=== PATIENT | female | born 1965 | race Caucasian/White ===

== ENCOUNTER 2018-09-20 20:15 | Emergency (ER) | payer MEDICAID, OTHER ==
[~2018-09-20] VITALS: Ht 165.1 cm; Wt 77.1 kg
[2018-09-20] MEDS ORDERED: HYDROcodone/APAP 5 MG/325 MG (LORTAB) TAB PO ONE (21:45)
--- NOTE | 2018-09-20 22:12 | ED General ---
General Chief Complaint: Trauma-Non Activation Stated Complaint: FALL Nursing Triage Note: Fall with head injury Nursing Sepsis Screen: No Definite Risk History of Present Illness Date Seen by Provider: Sep 20, 2018 Time Seen by Provider: 23:49 Initial Comments Patient presents to emergency department for evaluation of head injury sustained when she was outside and fell and tripped forward striking her head against her [place]. She does not think that she lost consciousness but she has pain in her face as well as a headache. She has multiple abrasions to her face and forehead. She says that her tetanus is up-to-date. She denies any neck chest abdomen back or other extremity pain and she is able to ambulate with a steady gait. She is in no obvious distress with normal vital signs. Location Injury Occurred: Home Allergies and Home Medications Allergies Coded Allergies: No Known Drug Allergies (Unverified , 09/20/18) Patient Home Medication List Home Medication List Reviewed: Yes Review of Systems Review of Systems Constitutional: No fever EENTM: No vision loss Respiratory: No short of breath Cardiovascular: No chest pain Gastrointestinal: No abdominal pain Psychiatric/Neurological: Headache Past Qsirzan-Fxwuvo-Nqcohw Hx Patient Social History Recent Foreign Travel: No Contact w/Someone Who Travel: No Recent Infectious Disease Expo: No Physical Abuse: No Sexual Abuse: No Mistreated: No Fear: No Past Medical History : No Physical Exam Vital Signs Vital Signs - First Documented 09/20/18 09/20/18 21:05 23:26 Temp 96.0 Pulse 114 Resp 16 B/P (MAP) 141/91 (108) Pulse Ox 96 Capillary Refill : Less Than 3 Seconds Height, Weight, BMI Height: 5'5.00" Weight: 170lbs. oz. 77.882011vz; BMI Method:Stated General Appearance: No Apparent Distress, WD/WN Eyes: Bilateral Eye Normal Inspection HEENT: PERRL/EOMI Neck: Full Range of Motion, Normal Inspection, Non Tender Respiratory: Chest Non Tender, Lungs Clear, Normal Breath Sounds Cardiovascular: Regular Rate, Rhythm Back: Normal Inspection, No Vertebral Tenderness Extremity: Normal Capillary Refill Neurologic/Psychiatric: Alert, Oriented x3 Skin: Other (surface abrasions to bridge of nose and forehead that do not extend into subcutaneous tissues) Progress/Results/Core Measures Suspected Sepsis Recent Fever Within 48 Hours: No Infection Criteria Present: None New/Unexplained Altered Menta: No Sepsis Screen: No Definite Risk SIRS Temperature:96.0 Pulse: 114 Respiratory Rate: Blood Pressure 141 /91 Mean: 108 Results/Orders My Orders Orders - PARTH BENEDICT DO Ct Head/Maxillofacial Wo (09/20/18 21:41) Hydrocodone/Apap 5/325 Tablet (Lortab 5 (09/20/18 21:45) Vital Signs/I&O 09/20/18 09/20/18 21:05 23:26 Temp 96.0 97.0 Pulse 114 110 Resp 16 B/P (MAP) 141/91 (108) 138/86 (103) Pulse Ox 96 Capillary Refill : Less Than 3 Seconds Blood Pressure Mean: 108 Progress Note : Progress Note Patient's CT negative for acute process and she had repeat normal neurologic exam she can safely be discharged to condition with supportive treatment. She was told to follow up with primary care provider later this week and come back to the ED sooner with worsening pain neurologic changes or general concerns. Departure Impression Primary Impression: CHI (closed head injury) Additional Impression: Facial abrasion Disposition: 01 HOME, SELF-CARE Condition: Stable Departure-Patient Inst. Decision time for Depature: 22:46 PARTH BENEDICT DO Sep 20, 2018 22:12
[2018-09-20 23:26] VITALS: BP 138/86
--- NOTE | 2018-09-21 06:12 | Diagnostic Imaging Report ---
PROCEDURE: CT head and maxillofacial without contrast. TECHNIQUE: Multiple contiguous axial images were obtained through the head and facial bones without the use of intravenous contrast. INDICATION: Head and face trauma. FINDINGS: There is prominence of the ventricles and sulci. There is some chronic microvascular ischemic disease. There is no hydrocephalus. There is no midline shift. There is no intracranial mass, hemorrhage or extra-axial fluid collection. There is a fluid level in the left maxillary sinus with some hyperdense components. There is also mucosal thickening. Nasal bones are intact. The zygomatic arches are intact. The pterygoid plates are intact. Mandible is intact. Condyles are well aligned. The orbital floors and lamina papyracea are intact. There is mucosal thickening in the right maxillary sinus. IMPRESSION: Atrophy and some chronic microvascular ischemic disease, however, no acute intracranial abnormality. No displaced facial fractures. Hyperdense fluid in the left maxillary sinus. Recommend correlation for sinusitis. Possibility of blood products in the setting of occult fracture cannot be entirely excluded given the degree of osteopenia. Recommend clinical correlation. Dictated by: Dictated on workstation # [id number]
== END 2018-09-20 23:26 | disposition home or self-care (01) ==
LOC: ER FS 20:19
DX: S09.90XA Unspecified injury of head, initial encounter (principal); S00.81XA Abrasion of other part of head, initial encounter; W01.198A Fall on same level from slipping, tripping and stumbling with subsequent striking against other object, initial encounter; Y92.009 Unspecified place in unspecified non-institutional (private) residence as the place of occurrence of the external cause
CPT/HCPCS: 70450; 70486

== ENCOUNTER 2019-02-13 07:07 | Emergency (ER) | payer MEDICARE, MEDICAID ==
[~2019-02-13] VITALS: Ht 165.1 cm; Wt 86.2 kg
--- OUTSIDE RECORDS SUMMARY | 2019-02-13 07:12 | XMS REPORT ---
Author Author TOREY PLEITEZ [facility] Address [address] [place] [address] Care Team Providers Care Butadiene Convertor Operator Name Role Phone TOREY PLEITEZ Unavailable PROBLEMS Unknown Problems ALLERGIES No Information ENCOUNTERS Encounter Location Date Diagnosis [facility] [address] [place] [address] Jun, [facility] [address] [address] Jan, [facility] [address] [address] Aug, [facility] [address], [place] [address] May, [facility] [address], [place] [address] November, [facility] [address] [address] Aug, [facility] [id number] [address] Apr, [facility] [address], [place] [address] Jan, [facility] [address], [place] [address] Jul, [facility] [address], [place] [address] Jan, [facility] [id number], [place] [address] Jan, [facility] [id number] [address] Jan, IMMUNIZATIONS No Known Immunizations SOCIAL HISTORY Never Assessed REASON FOR VISIT PLAN OF CARE VITAL SIGNS MEDICATIONS Unknown Medications RESULTS No Results PROCEDURES No Known procedures INSTRUCTIONS MEDICATIONS ADMINISTERED No Known Medications
--- OUTSIDE RECORDS SUMMARY | 2019-02-13 07:12 | XMS REPORT ---
Author Author TOREY PLEITEZ [facility] Address [address] [place] [address] Care Team Providers Care Portfolio Specialist Name Role Phone TOREY PLEITEZ Unavailable PROBLEMS Unknown Problems ALLERGIES No Information ENCOUNTERS Encounter Location Date Diagnosis [facility] [address], [place] [address] Jun, [facility] [id number] [address] Jan, [facility] [id number] [address] Aug, [facility] [address] [place] [address] May, [facility] [address] [place] [address] November, [facility] [id number] [address] Aug, [facility] [id number] [address] Apr, [facility] [address], [place] [address] Jan, [facility] [address], [place] [address] Jul, [facility] [address], [place] [address] Jan, [facility] [id number], [place] [address] Jan, [facility] [id number] [address] Jan, IMMUNIZATIONS No Known Immunizations SOCIAL HISTORY Never Assessed REASON FOR VISIT PLAN OF CARE VITAL SIGNS MEDICATIONS Unknown Medications RESULTS No Results PROCEDURES No Known procedures INSTRUCTIONS MEDICATIONS ADMINISTERED No Known Medications
--- OUTSIDE RECORDS SUMMARY | 2019-02-13 07:12 | XMS REPORT ---
Author Author TOREY PELITEZ [facility] Address [address] [place] [address] Care Team Providers Care Cooking Appliance Repair Technician Name Role Phone TOREY PLEITEZ Unavailable PROBLEMS Unknown Problems ALLERGIES No Information ENCOUNTERS Encounter Location Date Diagnosis [facility] [address], [place] [address] Jun, [facility] [id number] [address] Jan, [facility] [id number] [address] Aug, [facility] [address], [place] [address] May, [facility] [address], [place] [address] November, [facility] [id number] [address] Aug, [facility] [id number], [place] [address] Apr, [facility] [address], [place] [address] Jan, [facility] [address], [place] [address] Jul, [facility] [address], [place] [address] Jan, [facility] [id number], [place] [address] Jan, [facility] [id number] [address] Jan, IMMUNIZATIONS No Known Immunizations SOCIAL HISTORY Never Assessed REASON FOR VISIT PLAN OF CARE VITAL SIGNS MEDICATIONS Unknown Medications RESULTS No Results PROCEDURES No Known procedures INSTRUCTIONS MEDICATIONS ADMINISTERED No Known Medications
--- OUTSIDE RECORDS SUMMARY | 2019-02-13 07:12 | XMS REPORT ---
Author Ninfa Sutherland Organization [employer] Address Unknown Phone Unavailable Care Team Providers Care Coconut Jelly Roller Name Role Phone Ninfa Moore CP Unavailable Allergies, Adverse Reactions, Alerts Substance Reaction Event Type N.K.D.A. 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 Problem Chronic depression F32.9 Active Medications Medication Code System Code Instructions Start Date End Date Status Dosage Aleve [facility] [address]-08 220 MG Orally every 12 hrs 1 tablet as needed Citalopram Hydrobromide [facility] [address]-20 20 MG Oral daily Jul 19, 2013 3 tabs Genvoya [facility] [address]-67 150 mg/150 mg/200/mg/10 mg Oral Once a day Aug 12, 2015 1 tablet Alprazolam [facility] [address]-49 2 MG Oral 1 prn Jul 19, 2013 not defined Procedures Procedure Coding System Code Date Office Visit, Est Pt., Level 3 CPT-4 82783 May 04, 2016 Billed by outside source CPT-4 NOBLL May 04, 2016 Vital Signs Date/Time: May 04, 2016 Temperature 97.7 F Weight 167.8 lbs Height 65 in Respiratory Rate 64 /min Cardiac Monitoring Heart Rate 64 /min Blood Pressure Diastolic 70 mm Hg Blood Pressure Systolic 126 mm Hg BMI 27.92 Index Results No Known Results Summary Purpose [employer] Submission
--- OUTSIDE RECORDS SUMMARY | 2019-02-13 07:12 | XMS REPORT ---
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 430677384 Problem Former smoker Z87.891 Active 3519898 Problem Smoker F17.200 Resolved 85034335 Problem Asymptomatic human immunodeficiency virus [HIV] infection status Z21 Active 13571813 ALLERGIES No Known Allergies ENCOUNTERS Encounter Location Date Diagnosis [address] [id number] Jun, Asymptomatic human immunodeficiency virus [HIV] infection status Z21 and B12 deficiency E53.[address] [id number] Jan, Asymptomatic human immunodeficiency virus [HIV] infection status Z21 and Low vitamin D level R79.[address] [id number] Aug, Acute human immunodeficiency virus (HIV) infection Z21 [address] [address] Jul, [address] [address] Jul, [facility] [address] [place] [id number] May, Asymptomatic human immunodeficiency virus (HIV) infection status Z21 ; Influenza vaccine needed Z23 ; Moderate episode of recurrent major depressive disorder F33.1 and Cheilitis K13.[address] [id number] November, Asymptomatic human immunodeficiency virus [HIV] infection status Z21 [facility] [address] [place] [address] Aug, Screening for breast cancer Z12.[address] [id number] Aug, Asymptomatic human immunodeficiency virus [HIV] infection status Z21 [facility] [address] [place] [address] Apr, [address] [id number] Apr, Asymptomatic human immunodeficiency virus [HIV] infection status Z21 ; Chronic depression F32.9 and Need for pneumococcal vaccination Z23 [address] [id number] Jan, Asymptomatic human immunodeficiency virus [HIV] infection status Z21 and Former smoker Z87.[address] [id number] Jul, Asymptomatic human immunodeficiency virus (HIV) infection status Z21 ; 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 and Smoker F17.[address] [id number] Jan, Asymptomatic human immunodeficiency virus (HIV) infection status V08 [facility] [address] [place] [id number] Jul, Asymptomatic human immunodeficiency virus (HIV) infection status V08 [address] [id number] Mar, Asymptomatic human immunodeficiency virus (HIV) infection status V08 ; Tobacco use disorder 305.1 and Needs flu shot V04.81 [facility] [address] [facility] [address] [place] [id number] Feb, [facility] [address] [facility] [address] [place] [id number] Feb, [facility] [address] [facility] [address] [place] [id number] November, [facility] [address] [place] [address] Jul, [facility] [address] [place] [facility] [place] [address] Apr, [facility] [address] [place] [facility] [place] [address] Feb, [facility] [address] [place] [facility] [place] [address] Jan, IMMUNIZATIONS Vaccine Route Administration Date Status VITAMIN B-12 IM Intramuscular Jun 20, 2018 Administered SOCIAL HISTORY Never Assessed REASON FOR VISIT HIV followup PLAN OF CARE Activity Details Follow Up 4 Months Reason: Pending Test Human Immunodeficiency Virus (HIV-1), Quantitative, Real-time PCR (graph) 69858 Pending Test Rapid Plasma Reagin (RPR), Test w/ Reflex to Quant RPR/Confirm Treponema pallidum Antibodies 72615 Pending Test Metabolic Panel (14), Comprehensive (CMP) 73829 Pending Test CD4/CD8 Ratio Profile 24116 VITAL SIGNS Height 65 in 2018-06-20 Weight 183 lbs 2018-06-20 Temperature 97.5 degrees Fahrenheit 2018-06-20 Heart Rate 62 /min 2018-06-20 Respiratory Rate 16 /min 2018-06-20 Oximetry 98 % 2018-06-20 BMI 30.45 kg/m2 2018-06-20 Blood pressure systolic 108 mm Hg 2018-06-20 Blood pressure diastolic 82 mm Hg 2018-06-20 MEDICATIONS Medication Instructions Dosage Frequency Start Date End Date Duration Status Genvoya [id number] MG TAKE 1 TABLET BY MOUTH DAILY 30 Active Aleve 220 MG Orally every 12 hrs 1 tablet as needed 12h Active Lisinopril 2.5 MG Active Alprazolam 2 MG Oral 1 prn Jul, 0 Active Citalopram Hydrobromide 20 MG Oral daily 3 tabs 24h Jul, Active RESULTS No Results PROCEDURES Procedure Date Ordered Result Body Site Billed by outside source Jun 20, 2018 THER/PROPH/DIAG INJ, SC/IM Jun 20, 2018 VITAMIN B-12 Jun 20, 2018 INSTRUCTIONS MEDICATIONS ADMINISTERED No Known Medications MEDICAL (GENERAL) HISTORY Type Description Date Medical History HIV Medical History Pneumonia, organism unspecified Medical History Smoker (resolved 02/07/2016) Surgical History Heart Cath 08/22/16
--- OUTSIDE RECORDS SUMMARY | 2019-02-13 07:12 | XMS REPORT ---
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 539847983 Problem Asymptomatic human immunodeficiency virus [HIV] infection status Z21 Active 55672578 Problem Smoker F17.200 Resolved 17596471 ALLERGIES No Information ENCOUNTERS Encounter Location Date Diagnosis [facility] [address] [place] [id number] Jan, [facility] [address] [place] [id number] Jul, Asymptomatic human immunodeficiency virus [HIV] infection status Z21 [facility] [address] [id number] Jun, Asymptomatic human immunodeficiency virus [HIV] infection status Z21 and B12 deficiency E53.[address] [facility] [address] [id number] Jan, Asymptomatic human immunodeficiency virus [HIV] infection status Z21 and Low vitamin D level R79.[address] [id number] Aug, Acute human immunodeficiency virus (HIV) infection Z21 [address] [address] Jul, [address] [address] Jul, [facility] [address] [place] [id number] May, Asymptomatic human immunodeficiency virus (HIV) infection status Z21 ; Influenza vaccine needed Z23 ; Moderate episode of recurrent major depressive disorder F33.1 and Cheilitis K13.[address] [id number] November, Asymptomatic human immunodeficiency virus [HIV] infection status Z21 [facility] [address] [place] [address] Aug, Screening for breast cancer Z12.[address] [id number] Aug, Asymptomatic human immunodeficiency virus [HIV] infection status Z21 [facility] [address] [place] [address] Apr, [address] [id number] Apr, Asymptomatic human immunodeficiency virus [HIV] infection status Z21 ; Chronic depression F32.9 and Need for pneumococcal vaccination Z23 [address] [id number] Jan, Asymptomatic human immunodeficiency virus [HIV] infection status Z21 and Former smoker Z87.[address] [id number] Jul, Asymptomatic human immunodeficiency virus (HIV) infection status Z21 ; 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 and Smoker F17.[address] [id number] Jan, Asymptomatic human immunodeficiency virus (HIV) infection status V08 [facility] [address] [place] [id number] Jul, Asymptomatic human immunodeficiency virus (HIV) infection status V08 [address] [id number] Mar, Asymptomatic human immunodeficiency virus (HIV) infection status V08 ; Tobacco use disorder 305.1 and Needs flu shot V04.81 [facility] [address] [facility] [address] [place] [id number] Feb, [facility] [address] [facility] [address] [place] [id number] Feb, [facility] [address] [facility] [address] [place] [id number] November, [facility] [address] [place] [address] Jul, [facility] [address] [place] [address] Apr, [facility] [address] [place] [address] Feb, [facility] [address] [place] [address] Jan, IMMUNIZATIONS No Known Immunizations SOCIAL HISTORY Never Assessed REASON FOR VISIT lab orders for PLAN OF CARE VITAL SIGNS MEDICATIONS Unknown Medications RESULTS No Results PROCEDURES No Known procedures INSTRUCTIONS MEDICATIONS ADMINISTERED No Known Medications MEDICAL (GENERAL) HISTORY Type Description Date Medical History HIV Medical History Pneumonia, organism unspecified Medical History Smoker (resolved 02/07/2016) Surgical History Heart Cath 08/22/16
--- OUTSIDE RECORDS SUMMARY | 2019-02-13 07:12 | XMS REPORT ---
Author Author TOREY PLEITEZ [facility] Address [address] [place] [address] Care Team Providers Care Design Drafter Chief Name Role Phone TOREY PLEITEZ Unavailable PROBLEMS Unknown Problems ALLERGIES No Information ENCOUNTERS Encounter Location Date Diagnosis [facility] [address], [place] [address] Jun, [facility] [id number], [place] [address] Jan, [facility] [id number], [place] [address] Aug, [facility] [address], [place] [address] May, [facility] [address], [place] [address] November, [facility] [id number], [place] [address] Aug, [facility] [id number], [place] [address] Apr, [facility] [address], [place] [address] Jan, [facility] [address], [place] [address] Jul, [facility] [address], [place] [address] Jan, [facility] [id number], [place] [address] Jan, [facility] [id number] [address] Jan, IMMUNIZATIONS No Known Immunizations SOCIAL HISTORY Never Assessed REASON FOR VISIT PLAN OF CARE VITAL SIGNS MEDICATIONS Unknown Medications RESULTS No Results PROCEDURES No Known procedures INSTRUCTIONS MEDICATIONS ADMINISTERED No Known Medications
--- OUTSIDE RECORDS SUMMARY | 2019-02-13 07:12 | XMS REPORT ---
Author TOREY Oseguera [facility] e[employer] Address Unknown Phone Unavailable Care Team Providers Care Senior Associate Name Role Phone TOREY PLEITEZ CP Unavailable Allergies No Known Allergies Problems No Known Problems Medications No Known Medications Results No Known Results Summary Purpose [employer] Submission
--- OUTSIDE RECORDS SUMMARY | 2019-02-13 07:12 | XMS REPORT ---
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
--- OUTSIDE RECORDS SUMMARY | 2019-02-13 07:12 | XMS REPORT ---
Author Author TOREY PLEITEZ [facility] Address [address] [place] [address] Care Team Providers Care Gas Meter Mechanic Name Role Phone TOREY PLEITEZ Unavailable PROBLEMS Unknown Problems ALLERGIES No Information ENCOUNTERS Encounter Location Date Diagnosis [facility] [id number] [address] Jun, [facility] [id number] [address] Jan, [facility] [id number] [address] Aug, [facility] [id number] [address] May, [facility] [id number] [address] November, [facility] [id number] [address] Aug, [facility] [id number] [address] Apr, [facility] [id number] [address] Jan, [facility] [id number] [address] Jul, [facility] [id number] [address] Jan, [facility] [id number] [address] Jan, [facility] [id number] [address] Jan, IMMUNIZATIONS No Known Immunizations SOCIAL HISTORY Never Assessed REASON FOR VISIT [facility] PLAN OF CARE VITAL SIGNS MEDICATIONS Unknown Medications RESULTS No Results PROCEDURES No Known procedures INSTRUCTIONS MEDICATIONS ADMINISTERED No Known Medications
--- OUTSIDE RECORDS SUMMARY | 2019-02-13 07:12 | XMS REPORT ---
Author Sandrita Calderón [facility] eClinicalWorks Address Unknown Phone Unavailable Care Team Providers Care Adon Name Role Phone Sandrita Contreras CP Unavailable Allergies, Adverse Reactions, Alerts Substance Reaction Event Type N.K.D.A. Info Not Available Non Drug Allergy Problems Problem Type Condition ICD-9 Code Onset Dates Condition Status Problem Biarmwwdqk-moopekc-vhkvotnza, combined [DTP] [DtaP] V06.1 Inactive Problem Other screening mammogram V76.12 Active Problem Need for prophylactic vaccination and inoculation, Influenza V04.81 Inactive Problem Special screening examination for unspecified viral disease V73.99 Inactive Problem Screening examination for venereal disease V74.5 Inactive Problem Tobacco use disorder 305.1 Active Problem Nondependent tobacco use disorder 305.1 Active Problem Asymptomatic human immunodeficiency virus (HIV) infection status V08 Active Problem Nonspecific serologic evidence of human immunodeficiency virus (HIV) 795.71 Inactive Problem Pneumonia, organism unspecified 486 Inactive Assessment Asymptomatic human immunodeficiency virus (HIV) infection status V08 Active Problem Depressive disorder, not elsewhere classified 311 Inactive Problem Condyloma acuminatum 078.11 Active Problem Need for prophylactic vaccination against streptococcus pneumoniae (pneumococcus) V03.82 Inactive Medications Medication Code System Code Instructions Start Date End Date Status Dosage Atripla [facility] [address]-26 600-200-300 MG Oral 1 (one) QHS January 04, 2014 not defined Citalopram Hydrobromide [facility] [address]-04 20 MG Oral 1 daily Jul 19, 2013 not defined Diphenoxylate-Atropine [facility] [address]-39 2.5-0.025 MG Oral 1/2 prn after loose stool not defined Alprazolam [facility] [address]-63 2 MG Oral 1 prn Jul 19, 2013 not defined Procedures Procedure Coding System Code Date Office Visit, Est Pt., Level 3 CPT-4 60363 Jul 23, 2014 Vital Signs Date/Time: Jul 23, 2014 Temperature 98.0 F Weight 132 lbs Height 65 in Respiratory Rate 28 /min Cardiac Monitoring Heart Rate 80 /min Blood Pressure Diastolic 82 mm Hg Blood Pressure Systolic 118 mm Hg BMI 21.96 Index Results No Known Results Summary Purpose eClinicalWorks Submission
--- OUTSIDE RECORDS SUMMARY | 2019-02-13 07:12 | XMS REPORT ---
Author TOREY Oseguera [facility] eClinicalWorks Address Unknown Phone Unavailable Care Team Providers Care Mobile Development Manager Name Role Phone TOREY PLEITEZ CP Unavailable Allergies No Known Allergies Problems No Known Problems Medications No Known Medications Results No Known Results Summary Purpose eClinicalWorks Submission
--- OUTSIDE RECORDS SUMMARY | 2019-02-13 07:12 | XMS REPORT ---
Author Author TOREY PLEITEZ [facility] Address [address] [place] [address] Care Team Providers Care Despatch Clerk Name Role Phone TOREY PLEITEZ Unavailable PROBLEMS Unknown Problems ALLERGIES No Information ENCOUNTERS Encounter Location Date Diagnosis [facility] [id number] [address] Jun, [facility] [id number] [address] Jan, [facility] [id number] [address] Aug, [facility] [id number] [address] May, [facility] [id number] [address] November, [facility] [id number] [address] Aug, [facility] [id number] [address] Apr, [facility] [address] [address] Jan, [facility] [address] [address] Jul, [facility] [id number] [address] Jan, [facility] [id number] [address] Jan, [facility] [id number] [address] Jan, IMMUNIZATIONS No Known Immunizations SOCIAL HISTORY Never Assessed REASON FOR VISIT PLAN OF CARE VITAL SIGNS MEDICATIONS Unknown Medications RESULTS No Results PROCEDURES No Known procedures INSTRUCTIONS MEDICATIONS ADMINISTERED No Known Medications
--- OUTSIDE RECORDS SUMMARY | 2019-02-13 07:13 | XMS REPORT ---
Author Erlinda Jauregui [facility] eClinicalWorks Address Unknown Phone Unavailable Care Team Providers Care Dictaphone Mechanic Name Role Phone Erlinda Martinez CP Unavailable Allergies No Known Allergies Problems Problem Type Condition Code Onset Dates Condition Status Assessment Former smoker Z87.891 Active Problem Smoker F17.200 Active Problem Asymptomatic human immunodeficiency virus [HIV] infection status Z21 Active Problem meterman prescription opiate use Z79.899 Active Problem Former smoker Z87.891 Active Assessment Asymptomatic human immunodeficiency virus [HIV] infection status Z21 Active Problem 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 Problem Chronic depression F32.9 Active Medications Medication Code System Code Instructions Start Date End Date Status Dosage Diphenoxylate-Atropine [facility] [address]-36 2.5-0.025 MG Oral 1/2 prn after loose stool not defined Alprazolam [facility] [address]-61 2 MG Oral 1 prn Jul 19, 2013 not defined Atripla [facility] 40846736193 600-200-300 MG 1 (one) Tablet, Oral, QHS Genvoya [facility] [address]-02 150 mg/150 mg/200/mg/10 mg Oral Once a day Aug 12, 2015 1 tablet Citalopram Hydrobromide [facility] [address]-73 20 MG Oral 1 daily Jul 19, 2013 not defined Procedures Procedure Coding System Code Date Office Visit, Est Pt., Level 3 CPT-4 03604 January 20, 2016 Billed by outside source CPT-4 NOBLL January 20, 2016 Vital Signs Date/Time: January 20, 2016 Temperature 98.4 F Weight 160.2 lbs Height 65 in Respiratory Rate 20 /min Cardiac Monitoring Heart Rate 92 /min Blood Pressure Diastolic 102 mm Hg Blood Pressure Systolic 168 mm Hg BMI 26.66 Index Results Name Result Date Reference Range Unit Abnormality Flag Lipid Panel 55357 ----HDL Cholesterol 67 25088399 >39 mg/dL ----VLDL Cholesterol [place] 38 05376265 5-40 mg/dL ----LDL Cholesterol Calc 136 65145916 0-99 mg/dL H ----Comment: CLIENT RELATIONS REPRESENTATIVE 20160120 ----Cholesterol, Total 241 57907361 100-199 mg/dL H ----Triglycerides 190 73239096 0-149 mg/dL H Metabolic Panel (14), Comprehensive (CMP) 51244 ----Globulin, Total 2.1 83739743 1.5-4.5 g/dL ----eGFR If Africn Am 83 39624910 >59 mL/min/1.73 ----eGFR If NonAfricn Am 72 03275094 >59 mL/min/1.73 ----Albumin, Serum 4.4 85355218 3.6-4.8 g/dL ----Sodium, Serum 141 37020844 134-144 mmol/L ----Protein, Total, Serum 6.5 25240536 6.0-8.5 g/dL ----BUN/Creatinine Ratio 22 56327756 11-26 ----Calcium, Serum 9.5 27671637 8.7-10.3 mg/dL ----AST (SGOT) 22 20160120 0-40 IU/L ----Glucose, Serum 94 94660998 65-99 mg/dL ----Alkaline Phosphatase, S 95 90458708 39-117 IU/L ----Bilirubin, Total 0.3 63720660 0.0-1.2 mg/dL ----Creatinine, Serum 0.88 58705266 0.57-1.00 mg/dL ----A/G Ratio 2.1 41742390 1.1-2.5 ----BUN 19 20160120 8-27 mg/dL ----Carbon Dioxide, Total 25 70966296 18-29 mmol/L ----ALT (SGPT) 19 20160120 0-32 IU/L ----Potassium, Serum 4.5 82466219 3.5-5.2 mmol/L ----Chloride, Serum 101 36150366 97-108 mmol/L Human Immunodeficiency Virus (HIV-1), Quantitative, Real-time PCR (graph) 81001 ----HIV-1 RNA by PCR 20 [id number] copies/mL ----log10 HIV-1 RNA 1.301 95391114 bes67duec/mL Rapid Plasma Reagin (RPR), Qualitative Test 18315 ----RPR Non Reactive 20160120 Non Reactive CD4/CD8 Ratio Profile 66156 ----Hemoglobin 13.1 19907588 11.1-15.9 g/dL ----RBC 4.37 36084995 3.77-5.28 x10E6/uL ----WBC 5.8 21124535 3.4-10.8 x10E3/uL ----CD4/CD8 Ratio 0.72 39571547 0.92-3.72 L ----% CD 8 Pos. Lymph. 44.4 82813631 12.0-35.5 % H ----Abs. CD 8 Suppressor 533 16979628 109-897 /uL ----% CD 4 Pos. Lymph. 31.8 90261205 30.8-58.5 % ----Immature Cells CLIENT RELATIONS REPRESENTATIVE 20160120 ----Absolute CD 4 [place] 382 26865143 359-1519 /uL ----Lymphs (Absolute) 1.2 23705502 0.7-3.1 x10E3/uL ----Neutrophils (Absolute) 3.8 35686466 1.4-7.0 x10E3/uL ----Eos (Absolute) 0.2 08963462 0.0-0.4 x10E3/uL ----Monocytes(Absolute) 0.5 79166426 0.1-0.9 x10E3/uL ----Immature Granulocytes 0 55148113 % ----Baso (Absolute) 0.0 34313819 0.0-0.2 x10E3/uL ----NRBC CLIENT RELATIONS REPRESENTATIVE 20160120 ----Immature Grans (Abs) 0.0 23515392 0.0-0.1 x10E3/uL ----Eos 4 37845266 % ----Basos 1 27198021 % ----Platelets 250 90967305 150-379 x10E3/uL ----Neutrophils 65 28298917 % ----Hematology Comments: CLIENT RELATIONS REPRESENTATIVE 20160120 ----Lymphs 21 95267191 % ----Monocytes 9 23497512 % ----MCV 90 89072906 79-97 fL ----MCH 30.0 57352028 26.6-33.0 pg ----MCHC 33.2 20160120 31.5-35.7 g/dL ----RDW 14.8 35644141 12.3-15.4 % ----Hematocrit 39.4 71469715 34.0-46.6 % Summary Purpose eClinicalWorks Submission
--- OUTSIDE RECORDS SUMMARY | 2019-02-13 07:13 | XMS REPORT ---
Author Author uRt Winter [facility] Address [address] [place], [place] [address] Care Team Providers Care Destaticizer Feeder Name Role Phone Rut Winter Unavailable PROBLEMS Type Condition ICD9-CM Code LZJ17-KW Code Onset Dates Condition Status SNOMED Code Assessment Screening for breast cancer Z12.39 22 Aug, 2016 Active 993418011 Problem nursing home prescription opiate use Z79.899 Active 984548483 Problem Smoker F17.200 Resolved 74886673 Problem Chronic depression F32.9 Active 480036554 Problem Former smoker Z87.891 Active 2624387 Problem Asymptomatic human immunodeficiency virus [HIV] infection status Z21 Active 85313475 Problem 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
--- OUTSIDE RECORDS SUMMARY | 2019-02-13 07:13 | XMS REPORT ---
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 260526318 Problem Former smoker Z87.891 Active 4468043 Problem Smoker F17.200 Resolved 38298559 Problem Asymptomatic human immunodeficiency virus [HIV] infection status Z21 Active 61681804 ALLERGIES No Known Allergies SOCIAL HISTORY Never Assessed PLAN OF CARE Activity Details Follow Up 01/31/18, prn Reason: Pending Test Human Immunodeficiency Virus (HIV-1), Quantitative, Real-time PCR (graph) 37147 Pending Test Rapid Plasma Reagin (RPR), Test w/ Reflex to Quant RPR/Confirm Treponema pallidum Antibodies 76826 Pending Test Thyroid-Stimulating Hormone (TSH) and Free T4 60932/86387 Pending Test Lipid Panel 57954 Pending Test Metabolic Panel (14), Comprehensive (CMP) 47671 Pending Test CD4/CD8 Ratio Profile 84820 VITAL SIGNS Height 65 in 2017-08-16 Weight 175 lbs 2017-08-16 Temperature 97.6 degrees Fahrenheit 2017-08-16 Heart Rate 64 /min 2017-08-16 Respiratory Rate 16 /min 2017-08-16 Oximetry 99 % 2017-08-16 BMI 29.12 kg/m2 2017-08-16 Blood pressure systolic 102 mm Hg 2017-08-16 Blood pressure diastolic 68 mm Hg 2017-08-16 MEDICATIONS Medication Instructions Dosage Frequency Start Date End Date Duration Status Lisinopril 2.5 MG Active Genvoya 500-113-674-10 MG TAKE 1 TABLET BY MOUTH DAILY 30 Active Citalopram Hydrobromide 20 MG Oral daily 3 tabs 24h Jul, Active Nystatin 755083 UNIT/ML Mouth/Throat Four times a day 4 ml 6h May, 10 days Active Genvoya 150 mg/150 mg/200/mg/10 mg Oral Once a day 1 tablet 24h Jul, 30 days Active Abilify 5 MG Orally Once a day 1 tablet 24h May, 30 day(s) Active Alprazolam 2 MG Oral 1 prn Jul, 0 Active Aleve 220 MG Orally every 12 hrs 1 tablet as needed 12h Active RESULTS No Results PROCEDURES Procedure Date Ordered Result Body Site Billed by outside source Aug 16, 2017 IMMUNIZATIONS No Known Immunizations MEDICAL (GENERAL) HISTORY Type Description Date Medical History HIV Medical History Pneumonia, organism unspecified Medical History Smoker (resolved 02/07/2016) Surgical History Heart Cath 08/22/16
--- OUTSIDE RECORDS SUMMARY | 2019-02-13 07:13 | XMS REPORT ---
Author Rut Martinez [facility] eClinicalWorks Address Unknown Phone Unavailable Care Team Providers Care Founder Chairman And Chief Creative Officer Name Role Phone Rut Winter CP Unavailable Allergies No Known Allergies Problems Problem Type Condition Code Onset Dates Condition Status Assessment Smoker F17.200 Active Problem Smoker F17.200 Active Problem Asymptomatic human immunodeficiency virus [HIV] infection status Z21 Active Problem [facility] prescription opiate use Z79.899 Active Assessment Asymptomatic human immunodeficiency virus (HIV) infection status Z21 Active Assessment buttermaker continuous churn prescription opiate use Z79.899 Active Problem 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 Problem Chronic depression F32.9 Active Medications Medication Code System Code Instructions Start Date End Date Status Dosage Atripla [facility] 85630001314 600-200-300 MG 1 (one) Tablet, Oral, QHS Diphenoxylate-Atropine [facility] [address]-91 2.5-0.025 MG Oral 1/2 prn after loose stool not defined Alprazolam [facility] [address]-36 2 MG Oral 1 prn Jul 19, 2013 not defined Genvoya [facility] [address]-72 150 mg/150 mg/200/mg/10 mg Oral Once a day Aug 12, 2015 1 tablet Citalopram Hydrobromide [facility] [address]-45 20 MG Oral 1 daily Jul 19, 2013 not defined Procedures Procedure Coding System Code Date Office Visit, Est Pt., Level 4 CPT-4 49167 Aug 12, 2015 Unhairing Machine Operator 3-10 Min in ASX Smoker CPT-4 G0436 Aug 12, 2015 Vital Signs Date/Time: Aug 12, 2015 Temperature 97.6 F Weight 148.4 lbs Height 65 in Respiratory Rate 18 /min Cardiac Monitoring Heart Rate 80 /min Blood Pressure Diastolic 86 mm Hg Blood Pressure Systolic 140 mm Hg BMI 24.69 Index Results Name Result Date Reference Range Unit Abnormality Flag Metabolic Panel (14), Comprehensive (CMP) 58523 ----Calcium, Serum 9.1 56598325 8.7-10.2 mg/dL ----Carbon Dioxide, Total 23 20150812 18-29 mmol/L ----ALT (SGPT) 17 20150812 0-32 IU/L ----Creatinine, Serum 0.63 00983760 0.57-1.00 mg/dL ----AST (SGOT) 23 20150812 0-40 IU/L ----eGFR If NonAfricn Am 98 86502702 >59 mL/min/1.73 ----Alkaline Phosphatase, S 144 37511713 39-117 IU/L H ----eGFR If Africn Am 114 45510484 >59 mL/min/1.73 ----Bilirubin, Total 0.2 64600950 0.0-1.2 mg/dL ----BUN/Creatinine Ratio 30 20150812 9-23 H ----A/G Ratio 1.9 20150812 1.1-2.5 ----Sodium, Serum 141 09138534 134-144 mmol/L ----Globulin, Total 2.2 82727537 1.5-4.5 g/dL ----Potassium, Serum 4.5 32320402 3.5-5.2 mmol/L ----Glucose, Serum 90 92190852 65-99 mg/dL ----Chloride, Serum 103 35302989 97-108 mmol/L ----Albumin, Serum 4.2 11993474 3.5-5.5 g/dL ----BUN 19 20150812 6-24 mg/dL ----Protein, Total, Serum 6.4 08413100 6.0-8.5 g/dL CD4/CD8 Ratio Profile 57563 ----Immature Grans (Abs) 0.0 04052778 0.0-0.1 x10E3/uL ----Immature Granulocytes 0 20150812 % ----Hematology Comments: EYE GLASS FRAME POLISHER 20150812 ----NRBC EYE GLASS FRAME POLISHER 20150812 ----Monocytes(Absolute) 0.6 32558325 0.1-0.9 x10E3/uL ----Lymphs (Absolute) 1.4 58220459 0.7-3.1 x10E3/uL ----Baso (Absolute) 0.0 76325338 0.0-0.2 x10E3/uL ----Eos (Absolute) 0.1 16202265 0.0-0.4 x10E3/uL ----Neutrophils (Absolute) 3.8 39714155 1.4-7.0 x10E3/uL ----Immature Cells EYE GLASS FRAME POLISHER 20150812 ----Basos 1 59032405 % ----Hemoglobin 12.5 46851107 11.1-15.9 g/dL ----Hematocrit 38.6 12294448 34.0-46.6 % ----CD4/CD8 Ratio 0.57 67766811 0.92-3.72 L ----Platelets 256 21695895 150-379 x10E3/uL ----RDW 13.9 63915268 12.3-15.4 % ----% CD 8 Pos. Lymph. 50.0 39796040 12.0-35.5 % H ----MCHC 32.4 50155594 31.5-35.7 g/dL ----RBC 4.27 87445002 3.77-5.28 x10E6/uL ----MCH 29.3 04103178 26.6-33.0 pg ----WBC 5.9 69306063 3.4-10.8 x10E3/uL ----Absolute CD 4 [place] 396 30906900 359-1519 /uL ----Eos 2 50607511 % ----Monocytes 10 37862682 % ----Abs. CD 8 Suppressor 700 70143844 109-897 /uL ----Lymphs 24 86255668 % ----% CD 4 Pos. Lymph. 28.3 64024005 30.8-58.5 % L ----Neutrophils 63 52122520 % ----MCV 90 56625708 79-97 fL Opioid/Opiate Agreement (Annual) Human Immunodeficiency Virus (HIV-1), Quantitative, Real-time PCR (graph) 37014 ----log10 HIV-1 RNA TNP 83007537 cwn28qqyc/mL ----HIV-1 RNA by PCR <20 95924369 copies/mL Summary Purpose eClinicalWorks Submission
--- OUTSIDE RECORDS SUMMARY | 2019-02-13 07:13 | XMS REPORT ---
Author Author Ben Sandrita [facility] Address [address] [place], [place] [address] Care Team Providers Care Clinical Account Executive Name Role Phone Sandrita Contreras Unavailable PROBLEMS Type Condition ICD9-CM Code TMG50-ZJ Code Onset Dates Condition Status SNOMED Code Assessment Asymptomatic human immunodeficiency virus [HIV] infection status Z21 November, Active 45393125 Problem [facility] prescription opiate use Z79.899 Active 845396533 Problem Smoker F17.200 Resolved 34303982 Problem Chronic depression F32.9 Active 683087377 Problem Former smoker Z87.891 Active 8208581 Problem Asymptomatic human immunodeficiency virus [HIV] infection status Z21 Active 90839086 Problem 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 Unknown Non Drug Allergy November, Unknown SOCIAL HISTORY No smoking Hx information available PLAN OF CARE Activity Details Pending Test Human Immunodeficiency Virus (HIV-1), Quantitative, Real-time PCR (graph) 61564 Pending Test Metabolic Panel (14), Comprehensive (CMP) 03287 Pending Test CD4/CD8 Ratio Profile 14360 3 Months,Reason: VITAL SIGNS Height 65 in 2016-11-23 Weight 166 lbs 2016-11-23 Temperature 97.7 degrees Fahrenheit 2016-11-23 Heart Rate 89 /min 2016-11-23 Respiratory Rate 16 /min 2016-11-23 Oximetry 98 % 2016-11-23 BMI 27.62 kg/m2 2016-11-23 Blood pressure systolic 122 mm Hg 2016-11-23 Blood pressure diastolic 74 mm Hg 2016-11-23 MEDICATIONS Medication Instructions Dosage Frequency Start Date End Date Duration Status Alprazolam 2 MG Oral 1 prn Jul, 0 Active Genvoya 150 mg/150 mg/200/mg/10 mg Oral Once a day 1 tablet 24h Jul, 30 days Active Aleve 220 MG Orally every 12 hrs 1 tablet as needed 12h Active Lisinopril 2.5 MG Active Citalopram Hydrobromide 20 MG Oral daily 3 tabs 24h Jul, Active RESULTS No Results PROCEDURES Procedure Date Ordered Related Diagnosis Body Site Billed by outside source November 23, 2016 Office Visit, Est Pt., Level 3 November 23, 2016 IMMUNIZATIONS No Known Immunizations
--- OUTSIDE RECORDS SUMMARY | 2019-02-13 07:13 | XMS REPORT ---
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 217389364 Problem Former smoker Z87.891 Active 6634705 Problem Smoker F17.200 Resolved 72382013 Problem Asymptomatic human immunodeficiency virus [HIV] infection status Z21 Active 56279115 ALLERGIES No Information SOCIAL HISTORY Never Assessed PLAN OF CARE VITAL SIGNS MEDICATIONS Unknown Medications RESULTS No Results PROCEDURES No Known procedures IMMUNIZATIONS No Known Immunizations MEDICAL (GENERAL) HISTORY Type Description Date Medical History HIV Medical History Pneumonia, organism unspecified (Inactive) Medical History Pneumonia, organism unspecified Medical History Smoker (resolved 02/07/2016) Surgical History Heart Cath 08/22/16
--- OUTSIDE RECORDS SUMMARY | 2019-02-13 07:13 | XMS REPORT ---
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 408050008 Problem Former smoker Z87.891 Active 4057219 Problem Smoker F17.200 Resolved 74184525 Problem Asymptomatic human immunodeficiency virus [HIV] infection status Z21 Active 54628376 ALLERGIES No Known Allergies ENCOUNTERS Encounter Location Date Diagnosis [address] [id number] Jan, Asymptomatic human immunodeficiency virus [HIV] infection status Z21 and Low vitamin D level R79.[address] [id number] Aug, Acute human immunodeficiency virus (HIV) infection Z21 [address] [address] Jul, [address] [address] Jul, [facility] [address] [place] [phone] May, Asymptomatic human immunodeficiency virus (HIV) infection status Z21 ; Influenza vaccine needed Z23 ; Moderate episode of recurrent major depressive disorder F33.1 and Cheilitis K13.[address] [id number] November, Asymptomatic human immunodeficiency virus [HIV] infection status Z21 [address] [place] [address] Aug, Screening for breast cancer Z12.[address] [id number] Aug, Asymptomatic human immunodeficiency virus [HIV] infection status Z21 [facility] [address] [place] [place] [address] Apr, [address] [id number] Apr, Asymptomatic human immunodeficiency virus [HIV] infection status Z21 ; Chronic depression F32.9 and Need for pneumococcal vaccination Z23 [address] [id number] Jan, Asymptomatic human immunodeficiency virus [HIV] infection status Z21 and Former smoker Z87.[address] [id number] Jul, Asymptomatic human immunodeficiency virus (HIV) infection status Z21 ; exterminator termite prescription opiate use Z79.899 and Smoker F17.[address] [id number] Jan, Asymptomatic human immunodeficiency virus (HIV) infection status V08 [facility] [address] [place] [id number] Jul, Asymptomatic human immunodeficiency virus (HIV) infection status V08 [address] [id number] Mar, Asymptomatic human immunodeficiency virus (HIV) infection status V08 ; Tobacco use disorder 305.1 and Needs flu shot V04.81 [facility] [address] [facility] [address] [place], [place] [phone] Feb, [facility] [address] [facility] [address] [place], [place] [id number] Feb, [facility] [address] [facility] [address] [place], [place] [id number] November, [facility] [address] [place] [address] Jul, [facility] [address] [place] [phone] Apr, [facility] [address] [facility] [phone] Feb, [facility] [address] [place] [facility] [place] [address] Jan, IMMUNIZATIONS No Known Immunizations SOCIAL HISTORY Never Assessed REASON FOR VISIT PLAN OF CARE Activity Details Follow Up 3 Months Reason: Pending Test Human Immunodeficiency Virus (HIV-1), Quantitative, Real-time PCR (graph) 31543 Pending Test Vitamin D, 25-Hydroxy 66323 Pending Test Metabolic Panel (14), Comprehensive (CMP) 03424 Pending Test CD4/CD8 Ratio Profile 25508 VITAL SIGNS Height 65 in 2018-01-31 Weight 184 lbs 2018-01-31 Temperature 97.7 degrees Fahrenheit 2018-01-31 Heart Rate 78 /min 2018-01-31 Respiratory Rate 18 /min 2018-01-31 Oximetry 95 % 2018-01-31 BMI 30.62 kg/m2 2018-01-31 Blood pressure systolic 108 mm Hg 2018-01-31 Blood pressure diastolic 78 mm Hg 2018-01-31 MEDICATIONS Medication Instructions Dosage Frequency Start Date End Date Duration Status Aleve 220 MG Orally every 12 hrs 1 tablet as needed 12h Active Citalopram Hydrobromide 20 MG Oral daily 3 tabs 24h Jul, Active Alprazolam 2 MG Oral 1 prn Jul, 0 Active Lisinopril 2.5 MG Active Genvoya 217-166-172-10 MG TAKE 1 TABLET BY MOUTH DAILY 30 Active RESULTS No Results PROCEDURES Procedure Date Ordered Result Body Site Billed by outside source January 31, 2018 INSTRUCTIONS MEDICATIONS ADMINISTERED No Known Medications MEDICAL (GENERAL) HISTORY Type Description Date Medical History HIV Medical History Pneumonia, organism unspecified Medical History Smoker (resolved 02/07/2016) Surgical History Heart Cath 08/22/16
--- OUTSIDE RECORDS SUMMARY | 2019-02-13 07:13 | XMS REPORT ---
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 565524423 Problem Former smoker Z87.891 Active 7800364 Problem Smoker F17.200 Resolved 45953702 Problem Asymptomatic human immunodeficiency virus [HIV] infection status Z21 Active 81081755 ALLERGIES No Information SOCIAL HISTORY Never Assessed PLAN OF CARE VITAL SIGNS MEDICATIONS Unknown Medications RESULTS No Results PROCEDURES No Known procedures IMMUNIZATIONS No Known Immunizations MEDICAL (GENERAL) HISTORY Type Description Date Medical History HIV Medical History Pneumonia, organism unspecified (Inactive) Medical History Pneumonia, organism unspecified Medical History Smoker (resolved 02/07/2016) Surgical History Heart Cath 08/22/16
--- OUTSIDE RECORDS SUMMARY | 2019-02-13 07:13 | XMS REPORT ---
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 514713136 Problem Former smoker Z87.891 Active 3070218 Problem Smoker F17.200 Resolved 22840895 Problem Asymptomatic human immunodeficiency virus [HIV] infection status Z21 Active 89842623 ALLERGIES No Known Allergies SOCIAL HISTORY Never Assessed PLAN OF CARE Activity Details Follow Up 08/16/16, prn Reason: Pending Test Human Immunodeficiency Virus (HIV-1), Quantitative, Real-time PCR (graph) 38018 Pending Test Metabolic Panel (14), Comprehensive (CMP) 51139 Pending Test CD4/CD8 Ratio Profile 12569 VITAL SIGNS Height 65 in 2017-05-17 Weight 176 lbs 2017-05-17 Temperature 96.8 degrees Fahrenheit 2017-05-17 Heart Rate 114 /min 2017-05-17 Respiratory Rate 18 /min 2017-05-17 Oximetry 97 % 2017-05-17 BMI 29.28 kg/m2 2017-05-17 Blood pressure systolic 112 mm Hg 2017-05-17 Blood pressure diastolic 78 mm Hg 2017-05-17 MEDICATIONS Medication Instructions Dosage Frequency Start Date End Date Duration Status Lisinopril 2.5 MG Active Aleve 220 MG Orally every 12 hrs 1 tablet as needed 12h Active Nystatin 895113 UNIT/ML Mouth/Throat Four times a day 4 ml 6h May, 10 days Active Alprazolam 2 MG Oral 1 prn Jul, 0 Active Genvoya 150 mg/150 mg/200/mg/10 mg Oral Once a day 1 tablet 24h Jul, 30 days Active Abilify 5 MG Orally Once a day 1 tablet 24h May, 30 day(s) Active Genvoya 920-379-213-10 MG TAKE 1 TABLET BY MOUTH DAILY 30 Active Citalopram Hydrobromide 20 MG Oral daily 3 tabs 24h Jul, Active RESULTS No Results PROCEDURES Procedure Date Ordered Result Body Site T CELL, ABSOLUTE COUNT/RATIO May 17, 2017 COMPREHEN METABOLIC PANEL May 17, 2017 HIV-1, DNA, QUANT May 17, 2017 Billed by outside source May 17, 2017 IMMUNIZATION ADMIN May 17, 2017 FLU VAC NO PRSV 4 MIRNA 3 YRS+ May 17, 2017 IMMUNIZATIONS Vaccine Route Administration Date Status Influenza Split 3 yrs > (QUAD) IM Intramuscular May 17, 2017 Administered MEDICAL (GENERAL) HISTORY Type Description Date Medical History HIV Medical History Pneumonia, organism unspecified (Inactive) Medical History Pneumonia, organism unspecified Medical History Smoker (resolved 02/07/2016) Surgical History Heart Cath 08/22/16
--- OUTSIDE RECORDS SUMMARY | 2019-02-13 07:13 | XMS REPORT ---
Author Sandrita Calderón Organization [employer] Address Unknown Phone Unavailable Care Team Providers Care Pattern Setter Name Role Phone Sandrita Contreras CP Unavailable Allergies, Adverse Reactions, Alerts Substance Reaction Event Type N.K.D.A. Info Not Available Non Drug Allergy Problems Problem Type Condition Code Onset Dates Condition Status Assessment Asymptomatic human immunodeficiency virus (HIV) infection status V08 Active Problem Chronic depression F32.9 Active Medications Medication Code System Code Instructions Start Date End Date Status Dosage Atripla [facility] [id number] 600-200-300 MG 1 (one) Tablet, Oral, QHS Alprazolam [facility] [address]-97 2 MG Oral 1 prn Jul 19, 2013 not defined Diphenoxylate-Atropine [facility] [address]-02 2.5-0.025 MG Oral 1/2 prn after loose stool not defined Citalopram Hydrobromide [facility] [address]-85 20 MG Oral 1 daily Jul 19, 2013 not defined Procedures Procedure Coding System Code Date Billed by outside source CPT-4 NOBLL January 21, 2015 Office Visit, Est Pt., Level 3 CPT-4 77609 January 21, 2015 Vital Signs Date/Time: January 21, 2015 Blood Pressure Systolic 132 mm Hg Weight 135 lbs Height 65 in Oximetry 92 % Respiratory Rate 18 /min Cardiac Monitoring Heart Rate 81 /min Blood Pressure Diastolic 86 mm Hg BMI 22.46 Index Results No Known Results Summary Purpose [employer] Submission
--- OUTSIDE RECORDS SUMMARY | 2019-02-13 07:14 | XMS REPORT | Continuity of Care Document ---
Author Organization Unknown Address Unknown Phone Unavailable Allergies There is no data. Medications There is no data. Problems There is no data. Procedures There is no data. Results Test Result Range [facility] - 09/24/18 10:40 GLUCOSE 115 mg/dL 65-99 UREA NITROGEN (BUN) 19 mg/dL 7-25 CREATININE 1.03 mg/dL 0.50-0.99 eGFR NON-AFR. CENTRAL AFRICAN 58 mL/min/1.73m2 > OR=60 eGFR 67 mL/min/1.73m2 > OR=60 BUN/CREATININE RATIO 18 (calc) 6-22 SODIUM 138 mmol/L 135-146 POTASSIUM 4.0 mmol/L 3.5-5.3 CHLORIDE 101 mmol/L 98-110 CARBON DIOXIDE 27 mmol/L 20-32 CALCIUM 9.0 mg/dL 8.6-10.4 PROTEIN, TOTAL 6.6 g/dL 6.1-8.1 ALBUMIN 3.8 g/dL 3.6-5.1 GLOBULIN 2.8 g/dL (calc) 1.9-3.7 ALBUMIN/GLOBULIN RATIO 1.4 (calc) 1.0-2.5 BILIRUBIN, TOTAL 0.4 mg/dL 0.2-1.2 ALKALINE PHOSPHATASE 152 U/L 33-130 AST 12 U/L 10-35 ALT 8 U/L 6-29 SUREPATH PAP RFX HPV mRNA E6/E7 - 10/14/18 16:43 CLINICAL INFORMATION: NRG LMP: NRG PREV. PAP: NRG PREV. BX: NRG SOURCE: Endocervix NRG STATEMENT OF ADEQUACY: NRG INTERPRETATION/RESULT: NRG PROJECT MANAGER RETAIL: NRG GENERAL CATEGORIZATION: NRG COMMENT: NRG PATHOLOGIST: NRG COMMENT NRG Encounters ACCT No. Visit Date/Time Discharge Status Pt. Type Provider Facility Loc./Unit Complaint [id number] 01/29/2019 16:10:00 01/29/2019 23:59:59 [facility] Outpatient LEX TORRES [facility] [id number] 10/14/2018 09:00:00 Document Registration [id number] 09/24/2018 09:40:00 Document Registration
--- OUTSIDE RECORDS SUMMARY | 2019-02-13 07:15 | XMS REPORT | Continuity of Care Document ---
Author Organization Unknown Address Unknown Phone Unavailable Allergies There is no data. Medications There is no data. Problems There is no data. Procedures There is no data. Results Test Result Range [facility] - 09/24/18 10:40 GLUCOSE 115 mg/dL 65-99 UREA NITROGEN (BUN) 19 mg/dL 7-25 CREATININE 1.03 mg/dL 0.50-0.99 eGFR NON-AFR. TURKMEN 58 mL/min/1.73m2 > OR=60 eGFR 67 mL/min/1.73m2 [...] NRG STATEMENT OF ADEQUACY: NRG INTERPRETATION/RESULT: NRG REIMBURSEMENT SPEC: NRG GENERAL CATEGORIZATION: NRG COMMENT: NRG PATHOLOGIST: NRG COMMENT NRG Encounters ACCT No. Visit Date/Time Discharge Status Pt. Type Provider Facility Loc./Unit Complaint [id number] 01/29/2019 16:10:00 01/29/2019 23:59:59 [facility] Outpatient LEX TORRES [facility] IN [facility] [id number] 10/14/2018 09:00:00 Document Registration [id number] 09/24/2018 09:40:00 Document Registration
--- NOTE | 2019-02-13 07:21 | ED Head Injury ---
General Stated Complaint: FALL; HEAD INJ Source: patient Exam Limitations: no limitations History of Present Illness Date Seen by Provider: Feb 13, 2019 Time Seen by Provider: 07:30 Initial Comments This 63-year-old lady presents history of having struck her right forehead. She fell from a standing position and struck her right forehead is slight amount of pain of her knee but mainly has problems with her swelling over the right forehead. There Was no loss of consciousness she denies any other injury denies problems walking or movement of her arms or legs denies loss of sensation trouble swallowing or any other neurologic problems. Occurred: just prior to arrival Severity: mild Location: frontal Method of Injury: fell Loss of Consciousness: no loss of consciousness Associated Systoms: Denies Symptoms Allergies and Home Medications Allergies Coded Allergies: codeine (Verified Allergy, Unknown, 02/13/19) ibuprofen (Verified Allergy, Unknown, 02/13/19) Patient Home Medication List Home Medication List Reviewed: Yes Review of Systems Review of Systems Constitutional: No no symptoms reported, No see HPI, No chills, No diaphoresis, No dizziness, No fever, No malaise, No weakness, No weight gain, No weight loss, No other Eyes: See HPI Ears, Nose, Mouth, Throat: no symptoms reported, see HPI; denies nose pain, denies nose discharge, denies loose teeth Respiratory: no symptoms reported; No orthopnea, No phlegm, No stridor Cardiovascular: no symptoms reported Gastrointestinal: see HPI Musculoskeletal: No no symptoms reported, No see HPI, No back pain, No gout, No joint pain (patient complains some mild tenderness over her right knee), No joint swelling, No muscle pain, No muscle stiffness, No muscle cramps, No muscle twitching, No muscle weakness, No neck pain, No other Skin: No rash Psychiatric/Neurological: See HPI; Denies Anxiety, Denies Depressed, Denies Petit Mal Seizures, Denies Weakness, Denies Other Endocrine: Denies Increased Thrist, Denies Increased Urine, Denies Unexplained Weight Gain, Denies Unexplaned Weight Loss Hematologic/Lymphatic: Denies See HPI, Denies Anemia, Denies Blood Clots Past Rpbeapw-Sknsfz-Mgmdga Hx Patient Social History Alcohol Use: Denies Use Recreational Drug Use: No Smoking Status: Former Smoker Type Used: Cigarettes 2nd Hand Smoke Exposure: No Recent Foreign Travel: No Contact w/Someone Who Travel: No Recent Infectious Disease Expo: No Recent Hopitalizations: No Physical Abuse: No Sexual Abuse: No Mistreated: No Fear: No Past Medical History Cardiac, Gallbladder Respiratory: No Currently Using CPAP: No : No Physical Exam Vital Signs Vital Signs - First Documented 02/13/19 07:10 Temp 97.1 Pulse 69 Resp 16 B/P (MAP) 122/87 (99) Pulse Ox 97 O2 Delivery Room Air Capillary Refill : Height, Weight, BMI Height: 5'5.00" Weight: 170lbs. oz. 77.467366jj; BMI Method:Stated General Appearance: WD/WN, no apparent distress HEENT: PERRL/EOMI, normal ENT inspection (patient has a cephalohematoma on the right forehead), TMs normal, pharynx normal Neck: non-tender, full range of motion, supple, normal inspection Cardiovascular: normal peripheral pulses, regular rate, rhythm, no edema, no gallop, no JVD, no murmur Respiratory: chest non-tender, lungs clear, normal breath sounds, no respiratory distress, no accessory muscle use Gastrointestinal: normal bowel sounds, non tender, soft, no organomegaly, no pulsatile mass Back: normal inspection, no CVA tenderness, no vertebral tenderness Extremities: normal range of motion, non-tender, normal inspection, no pedal edema, no calf tenderness, normal capillary refill, pelvis stable; No calf tenderness, No inflammation, No pedal edema, No slow capillary refill, No swelling, No other Psychiatric: alert, oriented x 3; No depressed affect, No disoriented x 3, No lethargic, No unresponsive, No other Crainal Nerves: normal hearing, normal speech, PERRL; No abnormal eye position, No abnormal gag reflex, No abnormal pupil position, No abnormal speech, No facial asymmetry, No facial droop, No facial paresthesias, No facial weakness, No gaze palsy, No hearing deficit (R), No hearing deficit (L), No tongue deviation to R, No tongue deviation to L, No other Coordination/Gait: normal finger to nose, normal gait, negative Romberg's sign Motor/Sensory: no motor deficit, no sensory deficit, no pronator drift, negative Babinski's sign Reflexes: 2+ Bicep (R), 2+ Bicep (L), 2+ Tricep (R), 2+ Tricep (L), 2+ Knee (R), 2+ Knee (L), 2+ Ankle (R), 2+ Ankle (L) Skin: normal color, warm/dry Lymphatic: no adenopathy Leandro Coma Score Best Eye Response: (4) Open Spontaneously Best Verbal Response: (5) Oriented Best Motor Response: (6) Obeys Commands Progress/Results/Core Measures Results/Orders My Orders Orders - CLIFTON MARVIN MD Ct Head Wo (02/13/19 07:21) Vital Signs/I&O 02/13/19 02/13/19 07:10 08:33 Temp 97.1 Pulse 69 71 Resp 16 18 B/P (MAP) 122/87 (99) 94/70 (78) Pulse Ox 97 97 O2 Delivery Room Air Progress Progress Note : Time: 08:33 Progress Note This 62-year-old lady struck her right forehead and was evaluated. Her examination reveals a bump on the right forehead but neurological examination is entirely normal CT scan of her head is negative Patient was reassured she was instructed to watch for head injury instructions and instructed if any questions or problems or age return or follow-up with her physician. Diagnostic Imaging Diagonstic Imaging: CT (CT scan of the head is essentially unremarkable) Departure Impression Primary Impression: Head injury without concussion or intracranial hemorrhage Disposition: 01 HOME, SELF-CARE Condition: Stable Departure-Patient Inst. Referrals: [facility] (PCP) Primary Care Physician LEX TORRES APRN (Family) Primary Care Physician Patient Instructions: Closed Head Injury CLIFTON MARVIN MD Feb 13, 2019 07:21
--- NOTE | 2019-02-13 08:08 | Diagnostic Imaging Report ---
PROCEDURE: CT head without contrast. TECHNIQUE: Multiple contiguous axial images were obtained through the brain without the use of intravenous contrast. Auto Exposure Controls were utilized during the CT exam to meet ALARA standards for radiation dose reduction. INDICATION: Fall. Hit head. Right scalp contusion. COMPARISON: 09/20/2018. FINDINGS: No large acute territorial ischemia, mass, or hemorrhage. Chronic microvascular disease is seen in the periventricular and subcortical white matter. The ventricles and cortical sulci are prominent, consistent with generalized volume loss. The basilar cisterns are patent and unremarkable. The calvarium is intact. A scalp contusion is seen overlying the right forehead. The visualized paranasal sinuses are clear. IMPRESSION: 1. No large acute territorial ischemia, mass, or hemorrhage. 2. Chronic microvascular disease. 3. Generalized volume loss. Dictated by: Dictated on workstation # [id number]
[2019-02-13 08:33] VITALS: BP 94/70
== END 2019-02-13 08:33 | disposition home or self-care (01) ==
LOC: ER FS 07:08
DX: S06.2X0A Diffuse traumatic brain injury without loss of consciousness, initial encounter (principal); R40.2142 Coma scale, eyes open, spontaneous, at arrival to emergency department; R40.2252 Coma scale, best verbal response, oriented, at arrival to emergency department; R40.2362 Coma scale, best motor response, obeys commands, at arrival to emergency department; Z88.5 Allergy status to narcotic agent; Z88.6 Allergy status to analgesic agent; Z87.891 Personal history of nicotine dependence; W18.39XA Other fall on same level, initial encounter; W22.8XXA Striking against or struck by other objects, initial encounter
CPT/HCPCS: 70450

== ENCOUNTER → 2019-03-26 | Outpatient (CLI) | payer MEDICARE, MEDICAID ==
--- NOTE | 2019-03-26 10:17 | Diagnostic Imaging Report ---
Lumbar spine. Indication: Back pain Findings: AP, lateral, spot lateral and both oblique views were obtained. There are no prior studies available for comparison. The lateral and spot lateral views show narrowing of the disc space at both L4-5 and L5-S1. There is also vacuum disc formation at L5-S1. In addition there is a grade 1 spondylolisthesis of L4 with respect to L5. The other intervertebral spaces are well-maintained. The oblique views fail to show any sign of a pars defect. There is no fracture or acute bony abnormality evident. There is no paraspinal mass visualized. However there do appear to be nonobstructive calculi in the inferior pole of the right kidney. These calculi have a conglomerate size of approximately 5 mm. There is mild symmetrical sclerosis of the sacroiliac joints. Impression: 1. There is no evidence for an acute bony abnormality. 2. There is degenerative disc and bony disease at L4-5 and L5-S1. If there is clinical concern regarding spinal stenosis or nerve encroachment, MRI would be recommended for further study. 3. Probable right nephrolithiasis. Dictated by: Dictated on workstation # [id number]
== END ==
LOC: RAD FS 09:29
PROVIDERS: ATTEND Nurse Practitioner Family
DX: M51.17 Intervertebral disc disorders with radiculopathy, lumbosacral region (principal)
CPT/HCPCS: 72110

== ENCOUNTER → 2019-04-02 | Outpatient (CLI) | payer MEDICARE, MEDICAID ==
--- NOTE | 2019-04-02 17:28 | Diagnostic Imaging Report ---
INDICATION: History of right renal stones. Low back pain x2 weeks. TECHNIQUE: Two supine views of the abdomen at 02:06 p.m. CORRELATION STUDY: None. FINDINGS: Moderate severity fecal retention is noted. No definitive calcification at the expected location of the renal silhouette. There is a tiny, faint calcification in the right hemipelvis. This is of unknown significance; however, possibility of small distal ureteral stone would be difficult to exclude. Bowel gas pattern demonstrates no findings to suggest obstruction. Likely tubal ligation clips within the pelvis. Vascular calcification is noted. Question of a stent over the expected location of the left common iliac vessels. Cholecystectomy clips in the right upper quadrant. IMPRESSION: 1. Moderate severity fecal retention. Nonobstructive appearing bowel gas pattern. 2. Faint calcification in the right hemipelvis. Although this is of unknown etiology, the possibility of a very small right ureteral stone however would be difficult to exclude. Dictated by: Dictated on workstation # [id number]
== END ==
LOC: RAD 13:50
PROVIDERS: ATTEND Urology
DX: N20.0 Calculus of kidney (principal); R19.5 Other fecal abnormalities
CPT/HCPCS: 74018

== ENCOUNTER → 2019-04-10 | Outpatient (CLI) | payer MEDICARE, MEDICAID ==
--- NOTE | 2019-04-10 10:30 | Diagnostic Imaging Report ---
PROCEDURE: CT abdomen and pelvis without contrast. TECHNIQUE: Multiple contiguous axial images were obtained through the abdomen and pelvis without the use of intravenous contrast. Auto Exposure Controls were utilized during the CT exam to meet ALARA standards for radiation dose reduction. INDICATION: Bilateral flank pain and renal stones. COMPARISON: Correlation is made with a KUB from 04/01/2019. FINDINGS: The lung bases are clear. The liver demonstrates diffuse low density, consistent with hepatic steatosis. No discrete liver mass is identified. The gallbladder is surgically absent. No biliary ductal dilatation is seen. The pancreas and spleen are unremarkable. No adrenal mass is identified. No renal calculus or hydronephrosis is detected. No ureteral calculi are identified. The aorta and iliac vessels are heavily calcified but nonaneurysmal. The small and large bowel loops are of normal caliber. There is no obstruction. The appendix is visualized and unremarkable. Mild diverticulosis of the sigmoid colon is noted but no evidence of acute diverticulitis. The bladder is decompressed. The uterus is unremarkable. IMPRESSION: 1. Hepatic steatosis. 2. No evidence of urinary tract calculus or obstruction. 3. No CT evidence of acute appendicitis. 4. Uncomplicated sigmoid diverticulosis. Dictated by: Dictated on workstation # [id number]
== END ==
LOC: RAD FS 09:16
PROVIDERS: ATTEND Urology
DX: K76.0 Fatty (change of) liver, not elsewhere classified (principal); K57.30 Diverticulosis of large intestine without perforation or abscess without bleeding; N20.0 Calculus of kidney
CPT/HCPCS: 74176

== ENCOUNTER → 2019-05-07 | Outpatient (CLI) | payer MEDICARE, MEDICAID ==
--- NOTE | 2019-05-07 13:29 | Diagnostic Imaging Report ---
INDICATION: Pre-MRI evaluation. TIME OF EXAM: 1:16 PM FINDINGS: Heart size is normal. Cardiac defibrillator is in place. No definite abandoned leads are identified. Lungs are clear. The pulmonary vascularity is normal. No effusion or pneumothorax is seen. IMPRESSION: No evidence of abandoned pacer leads. Dictated by: Dictated on workstation # [id number]
--- NOTE | 2019-05-07 15:46 | Diagnostic Imaging Report ---
PROCEDURE: MRI lumbar spine. TECHNIQUE: Multiplanar, multisequence MRI of the lumbar spine was performed without contrast. INDICATION: Back pain. COMPARISON: Lumbar spine radiographs of 03/26/2019. FINDINGS: There is 6 mm of anterolisthesis of L4 on L5 that appear secondary to severe facet disease. No additional spondylolisthesis. No fracture or marrow replacing process. No features of sacral insufficiency fracture. No discitis-osteomyelitis. The distal thoracic cord is normal in appearance. No epidural fluid collection. No concerning abnormality in the visualized retroperitoneum. Paravertebral musculature is symmetric. T11-T12: Central disc protrusion causes near complete effacement of the ventral thecal sac with minimal indentation of the ventral cord. No neural foraminal narrowing. T12-L1: The disc is normal. No spinal canal, lateral recess or neural foraminal narrowing. L1-L2: Circumferential disc bulging. Minimal facet osteoarthritis. No resultant spinal stenosis. Mild bilateral foraminal narrowing due to disc bulging. L2-L3: Circumferential disc bulge. Mild facet osteoarthritis. No spinal stenosis, lateral recess narrowing or neuroforaminal narrowing. L3-L4: Minimal disc bulge. No spinal stenosis, lateral recess narrowing or neuroforaminal narrowing. L4-L5: Circumferential disc bulge with moderate to severe facet osteoarthritis and ligamentum flavum hypertrophy. This causes overall moderate to severe spinal stenosis and severe effacement of the right lateral recess with potential impingement of the descending nerve roots. Moderate to severe bilateral foraminal narrowing due to the anterolisthesis and facet osteoarthritis. L4-L5: Disc bulge with coexistent central disc protrusion results in mild spinal stenosis, and there is contact of the descending S1 nerve roots in the lateral recesses. Moderate to severe bilateral foraminal narrowing is also present. IMPRESSION: 1. Grade I anterolisthesis of L4 on L5 is due to degenerative facet disease. 2. Multilevel degenerative changes are also greatest at L4-L5 where there is moderate to severe spinal stenosis and potential impingement of the nerve roots within the lateral recess. Dictated by: Dictated on workstation # [id number]
== END ==
LOC: RAD 13:01
PROVIDERS: ATTEND Nurse Practitioner Family
DX: Z01.818 Encounter for other preprocedural examination (principal); M47.816 Spondylosis without myelopathy or radiculopathy, lumbar region; M48.061 Spinal stenosis, lumbar region without neurogenic claudication; M43.16 Spondylolisthesis, lumbar region
CPT/HCPCS: 71045; 72148

== ENCOUNTER → 2019-09-01 | Outpatient (CLI) | payer MEDICAID, MEDICARE, OTHER ==
--- NOTE | 2019-09-01 12:55 | Diagnostic Imaging Report ---
INDICATION: Postmenopausal screening for osteoporosis. COMPARISON: None. FINDINGS: AP Spine L1-L4: [BMD (g/cm2): 0.994] [T-Score: -1.7] [Z-Score: -0.6] [BMD Previous: NA] [BMD % Change: NA] LT Hip Neck: [BMD (g/cm2): 0.757] [T-Score: -2.0] [Z-Score: -0.9] LT Hip Total: [BMD (g/cm2):0.839] [T-Score:-1.3] [Z-Score: -0.5] [BMD Previous: NA] [BMD % Change: NA] RT Hip Neck: [BMD (g/cm2):0.851] [T-Score:-1.3] [Z-Score:-0.2] RT Hip Total: [BMD (g/cm2):0.841] [T-score:-1.3] [Z-Score:-0.5] [BMD Previous:NA] [BMD % Change:NA] *Indicates significant change from prior examination based on 95% confidence level. World Health Organization criteria for BMD interpretation classify patients as Normal (T-score at or above -1.0), Osteopenic (T-score between -1.0 and -2.5) or Osteoporotic (T-score at or below -2.5). LIMITATIONS AND MODIFICATION: None. FRACTURE RISK (FRAX SCORE): The ten year probability of (%): Major Osteoporotic Fracture: [10.5] Hip Fracture: [1.5] IMPRESSION: 1. Osteopenia (Low bone mass). 2. Baseline examination. 3. See below National Osteoporosis Foundation guidelines on when to potentially initiate pharmacologic therapy. Based on the National Osteoporosis Foundation Guidelines, pharmacologic treatment should be initiated in any of the following, unless clinical conditions suggest otherwise: * Any patient with prior fragility fracture of the hip or vertebrae. A spine fracture indicates 5X risk for subsequent spine fracture and 2X risk for subsequent hip fracture. * Osteoporosis (T-score <-2.5). * Postmenopausal women and men age 50 and older with low bone mass/osteopenia (T-score between -1.0 and -2.5) by DXA and 10-year major osteoporotic fracture greater than 20% or a 10-year probability of hip fracture greater than 3%. These fracture risks are supplied above in the FRAX score, if applicable. * Clinician judgement and/or patient preferences may indicate treatment for people with 10-year fracture probabilities above or below these levels. Dictated by: Dictated on workstation # [id number]
== END ==
LOC: RAD 11:29
PROVIDERS: ATTEND Nurse Practitioner Family
DX: Z13.220 Encounter for screening for lipoid disorders (principal); M85.80 Other specified disorders of bone density and structure, unspecified site; Z78.0 Asymptomatic menopausal state
CPT/HCPCS: 77080

== ENCOUNTER → 2020-04-07 | Outpatient (CLI) | payer MEDICARE, MEDICAID ==
--- NOTE | 2020-04-07 14:31 | Diagnostic Imaging Report ---
INDICATION: Right hip pain. Injury. COMPARISON: None. FINDINGS: Two radiographic views of the right hip were obtained and show no evidence of acute fracture or dislocation of the right hip. Moderate osteoarthritic changes are noted and consist of joint space narrowing with sclerotic remodeling to the articular surfaces as well as small osteophyte formations. Note is also made of calcified arteriosclerosis. No unexpected radiopaque foreign bodies are seen. IMPRESSION: 1. No acute fracture or dislocation of the right hip. 2. Moderate osteoarthritic disease. Dictated by: Dictated on workstation # [id number]
== END ==
LOC: RAD FS 13:53
PROVIDERS: ATTEND Nurse Practitioner Family
DX: M16.11 Unilateral primary osteoarthritis, right hip (principal)
CPT/HCPCS: 73502

== ENCOUNTER → 2021-12-22 | Outpatient (CLI) | payer MEDICARE, MEDICAID ==
--- NOTE | 2021-12-22 18:05 | Diagnostic Imaging Report ---
EXAM: Lumbar spine 2 or 3 view INDICATION: Chronic low back pain. COMPARISON: MRI lumbar spine 05/07/2019. FINDINGS: Grade 2 anterolisthesis of L4 on L5 is similar to the prior. Vertebral body heights are preserved. No fractures are identified. Moderate to severe spondylotic changes at L5-S1 greater than L4-L5. The visualized pelvis is intact. Partially visualized right ALIA and surgical clips in the pelvis. Cholecystectomy clips. Partially visualized AICD. Nonspecific bowel gas pattern. Advanced atherosclerotic calcifications. IMPRESSION: 1. Moderate to severe spondylotic changes at L5-S1 greater than L4-L5. 2. Stable grade 2 anterolisthesis of L4 on L5. 3. No acute radiographic findings. Dictated by: Dictated on workstation # [id number]
== END ==
LOC: RAD FS 17:13
PROVIDERS: ATTEND Nurse Practitioner Family
DX: M47.817 Spondylosis without myelopathy or radiculopathy, lumbosacral region (principal); M43.16 Spondylolisthesis, lumbar region
CPT/HCPCS: 72100